=== PATIENT | female | born 1965 | race African-American/Black ===

== ENCOUNTER 2025-06-24 18:49 | Emergency (ER) | payer MEDICARE ==
[2025-06-24] MEDS ORDERED: Ketorolac Tromethamine 30 MG (1 mL) VIAL ONE (20:15)
[2025-06-24] MEDS ORDERED: Acetaminophen 325 MG TAB ONE (20:15)
== END 2025-06-24 22:19 | disposition home or self-care (01) ==
LOC: ERS 18:49
DX: M79.651 Pain in right thigh (principal); I10 Essential (primary) hypertension; Z79.899 Other long term (current) drug therapy
CPT/HCPCS: 73564; 93971; J1885; 96372